=== PATIENT | female | born 1970 | race Two or more races ===

== ENCOUNTER 2016-03-23 09:48 | Emergency (ER) | payer MEDICAID ==
[~2016-03-23] VITALS: Ht 154.9 cm; Wt 56.7 kg
[2016-03-23 09:51] VITALS: BP 135/73
== END 2016-03-23 10:13 | disposition home or self-care (01) ==
LOC: ER 09:51
DX: H92.02 Otalgia, left ear (principal); J45.909 Unspecified asthma, uncomplicated; Z90.49 Acquired absence of other specified parts of digestive tract
CPT/HCPCS: 99283; A4606; Z7610